=== PATIENT | male | born 1980 | race Caucasian/White ===

== ENCOUNTER 2017-06-19 22:17 | Emergency (ER) | payer OTHER ==
--- NOTE | ~2017-06-19 | ER ---
PATIENT'S NAME: NEHEMIAS JEREZ [facility] AGE: 36 Y [address] ROOM: [place] [address] LOCATION: [facility] ADMIT DATE: 06/19/2017 ER/Outpatient Report DISCHARGE DATE: 06/19/2017 FAMILY PHYSICIAN: PHYSICIAN, NO ATTENDING PHYSICIAN: Rachid Finley Admission date and time are documented on the medical record. I saw the patient at 2230 hours. CHIEF COMPLAINT: Head trauma. HISTORY OF PRESENT ILLNESS: This patient is a 36-year-old male who about 30 minutes prior to admission to the emergency room hit his head on a bathroom door. Apparently, the bathroom door swung and hit him on the right-side of his head. The patient was dazed, possibly lost consciousness briefly. It was noted that the patient was unable to focus and had some problems remembering the incident and had some problems with his thinking. No nausea or vomiting. No incontinence of stool or urine. No chest pain or shortness of breath. No abdominal pain. No back pain. Does have pain in the right-side of his head. No eyes, ears, nose, throat, neck, or spine pain. The patient did use LSD tonight approximately an hour ago. No other illicit drugs. No alcohol. No history of previous head trauma, no history of endocrine problems, or psych issues. HOME MEDICATIONS: See attached medication list. ALLERGIES: NONE. SOCIAL HISTORY: Nonsmoker, nondrinker, does use LSD. SIGNIFICANT PAST MEDICAL HISTORY: Negative except for use of LSD. OPERATIONS: None. REVIEW OF SYSTEMS: All systems reviewed by me are negative with the exception of those discussed in the history of present illness. PHYSICAL EXAMINATION: PATIENT'S NAME: NEHEMIAS JEREZ [facility] AGE: 36 Y [address] ROOM: [place] [address] LOCATION: [facility] ADMIT DATE: 06/19/2017 ER/Outpatient Report DISCHARGE DATE: 06/19/2017 FAMILY PHYSICIAN: PHYSICIAN, DILCIA ATTENDING PHYSICIAN: Rachid Finley VITAL SIGNS: Temperature 98.2, pulse 107, respiratory rate 20, blood pressure 156/97, and O2 sat on room air is 95%. HEAD: Normocephalic, a little bit of swelling in the right temporal area of his scalp. No open wounds. No abrasions. No facial injuries. EYES: Pupils were dilated, but reactive. EARS: Clear TMs bilaterally. NOSE AND THROAT: Clear. Mucous membranes moist. Teeth, jaw intact. NECK: No nuchal rigidity. No thyromegaly or cervical adenopathy. No tenderness. SPINE: Negative. LUNGS: Clear. HEART: Regular. Pulses are palpable. ABDOMEN: Soft, nondistended, nontender. Good bowel tones. No organomegaly or abnormal mass palpable. EXTREMITIES: Moves all 4 extremities. No peripheral edema, cyanosis, or deformity. NEURO: Cranial nerves appear to be intact. No lateralizing weakness, numbness, tingling, or loss of function. The patient's thought process are fragmented. SKIN: Clear. LABORATORY DATA: CT scan of the head showed no intracranial bleed, midline shift, mass effect, or skull fracture. CT scan of cervical spine showed no acute fracture or subluxation. All CT scans read by Radiology, see dictated transcribed report. IMPRESSION: 1. Contusion, right temporal scalp with grade 2 to 3 concussion. 2. Under the influence of LSD. PLAN: The patient dismissed home. Observation. Activity as tolerated. Cool packs to right-side of the head intermittently as needed. Fluids, diet as tolerated. Return to see personal physician as needed. MD SINCERE SALAZAR/modl /[id number] d: 06/20/17 0255 t: 06/20/17 1821, OUTPATIENT REPORT
== END 2017-06-19 23:28 | disposition disaster alternative care site (69) ==
LOC: GACC 22:17
DX: S06.0X9A Concussion with loss of consciousness of unspecified duration, initial encounter (principal); S00.03XA Contusion of scalp, initial encounter; Z79.899 Other long term (current) drug therapy; W22.09XA Striking against other stationary object, initial encounter; Y92.002 Bathroom of unspecified non-institutional (private) residence as the place of occurrence of the external cause